=== PATIENT | male | born 1980 | race Caucasian/White ===

== ENCOUNTER 2023-03-12 22:21 | Emergency (ER) | payer OTHER, SELFPAY ==
[2023-03-12 22:45] VITALS: BP 133/78; PULSE 55; RESP 18; TEMP 36.3; O2SAT 98
--- NOTE | 2023-03-12 23:03 | ED.GENADULT ---
HPI - General Adult General Chief complaint: Skin/Abscess/Foreign Body Stated complaint: spider bite with abscess Time Seen by Provider: 03/12/23 22:51 Source: patient Mode of arrival: ambulatory Limitations: no limitations History of Present Illness HPI narrative: This is a 42-year-old male who presents to the ED with chief complaint of possible abscess with cellulitis. Patient was having some redness to his left lower leg so he saw his family doctor on Wednesday and was given a prescription for doxycycline. Today patient states that he does not have any pain but noticed a little pocket of pus over the area of redness. Denies any spreading of the redness or streaking. Denies fevers, chills, nausea, vomiting. Related Data Allergies Allergy/AdvReac Type Severity Reaction Status Date / Time No Known Allergies Allergy Mild Verified 03/12/23 22:54 Review of Systems Review of Systems: CONSTITUTIONAL: Denies fever, chills, or sweats. EYES: Denies visual changes, redness, or discharge. ENT: Denies rhinorrhea, congestion, sore throat, or otalgia. CARDIOVASCULAR: Denies chest pain, palpitations, or edema. RESPIRATORY: Denies cough or dyspnea. GASTROINTESTINAL: Denies abdominal pain, nausea, vomiting, or diarrhea. GENITOURINARY: Denies dysuria or hematuria. SKIN: See HPI MUSCULOSKELETAL: Denies back pain, joint pain, or myalgia. NEUROLOGIC: Denies headache, numbness, dizziness, or weakness. PSYCHIATRIC: Denies anxiety or depression. Exam Narrative: GENERAL: Well-appearing, well-nourished, and in no acute distress. HEAD: Normocephalic, atraumatic. EYES: PERRLA and EOMI. ENT: Nares clear, no rhinorrhea or epistaxis. Mucous membranes moist. Oropharynx without tonsillar hypertrophy exudate or other lesions. NECK: Supple. No adenopathy or masses. CHEST: No respiratory distress. Clear to auscultation. No wheezes rales or rhonchi HEART: Regular rate and rhythm. No murmur heard. Normal peripheral pulses. ABDOMEN: Soft, nontender, nondistended, normal active bowel sounds. MSK: Normal range of motion. No edema. SKIN: 2-1/2 cm x 2 and half centimeter area of erythema to the left anterior melvin. There is a 1 cm area of purulence very superficially in the center of the erythema. No spreading or streaking up the leg. Absolutely no tenderness throughout the leg. No crepitus. NEURO: Alert and oriented x3. No focal deficits. PSYCH: Normal mood and affect. Course Vital Signs Vital signs: Vital Signs Temperature 97.4 F L 03/12/23 22:45 Pulse Rate 55 L 03/12/23 22:45 Respiratory Rate 18 03/12/23 22:45 Blood Pressure 133/78 03/12/23 22:45 Pulse Oximetry 98 03/12/23 22:45 Oxygen Delivery Room Air 03/12/23 22:45 Temperature 97.4 F L 03/12/23 22:45 Pulse Rate 55 L 03/12/23 22:45 Respiratory Rate 18 03/12/23 22:45 Blood Pressure 133/78 03/12/23 22:45 Pulse Oximetry 98 03/12/23 22:45 Oxygen Delivery Room Air 03/12/23 22:45 Procedures Abscess I/D lower extremity: Date of Incision: 03/12/23 Time of Incision: 23:33 Side (if applicable): left (melvin) Local Anesthetic: none Technique: incised with #11 blade Amount of fluid expressed (mL): 1 Irrigation: Yes Packing used?: none I&D Results: Pus and Blood Abcess I&D Additional Comments: Very superficial abscess to the left melvin. Able to incise and drained without local anesthetics. Incised with a very superficial stab incision. Able to express a small amount of pus and blood. Nonadherent dressing placed. Tolerated well with no complications. Medical Decision Making MDM Narrative Medical decision making narrative: This is a 42-year-old male who presents to the ED with chief complaint of cellulitis with overlying purulence. He has been on Doxy for 4 days and feels like he has not had any spreading redness or pain. Vitals are normal. Afebrile. Exam does reveal a small pustule 1 c
== END 2023-03-13 00:18 | disposition home or self-care (01) ==
LOC: ANHED 03-13
PROVIDERS: Emergency Provider Physician Assistant; PCP Internal Medicine
DX: L02.416 Cutaneous abscess of left lower limb (principal); L03.116 Cellulitis of left lower limb
CPT/HCPCS: 10060; 99282